=== PATIENT | male | born 1990 | race Caucasian/White ===

== ENCOUNTER 2024-10-18 03:05 | Emergency (ER) | payer OTHER ==
[~2024-10-18] VITALS: Ht 188 cm; Wt 79.4 kg
[2024-10-18] MEDS ORDERED: CYCLOBENZAPRINE 10 MG TABLET ONE (04:02)
[2024-10-18] MEDS ORDERED: KETOROLAC TROMETHAMINE INJ 30 MG/ML VIAL ONE (04:03)
[2024-10-18] MEDS: KETOROLAC TROMETHAMINE INJ 30 MG/ML VIAL IM ONE (04:10)
[2024-10-18] MEDS: CYCLOBENZAPRINE 10 MG TABLET PO ONE (04:10)
[2024-10-18] MEDS ORDERED: CYCL5TAB PO (04:12)
[2024-10-18 04:40] VITALS: BP 125/65; TEMP 97.6; O2SAT 98
== END 2024-10-18 04:41 | disposition home or self-care (01) ==
LOC: ER 03:11
DX: M25.512 Pain in left shoulder (principal); M54.2 Cervicalgia; Z88.6 Allergy status to analgesic agent
CPT/HCPCS: 99283; 96372; J1885